=== PATIENT | male | born 1945 | race Caucasian/White ===

== ENCOUNTER 2022-05-03 10:00 | Outpatient (CLI) | payer OTHER | END 2022-05-03 10:50 | disposition home or self-care (01) | LOC: LAB 10:00 | PROVIDERS: ATTEND Urology | DX: R97.20 Elevated prostate specific antigen [PSA] (principal) ==

== ENCOUNTER 2022-05-20 07:58 | Outpatient (CLI) | payer OTHER | END 2022-05-20 08:17 | disposition home or self-care (01) | LOC: SONOGRAMA 07:58 | PROVIDERS: ATTEND Urology | DX: C61 Malignant neoplasm of prostate (principal); N40.0 Benign prostatic hyperplasia without lower urinary tract symptoms; N41.1 Chronic prostatitis ==

== ENCOUNTER 2022-05-23 21:20 | Emergency (ER) | payer OTHER ==
[~2022-05-23] VITALS: Ht 172.7 cm; Wt 59.4 kg
[2022-05-23] MEDS ORDERED: [UNRECOGNIZED DRUG - OTHER] (21:36)
== END 2022-05-24 07:00 | disposition home or self-care (01) ==
LOC: ER 21:20 → EDBD 21:23 → ER 21:23
DX: R33.8 Other retention of urine (principal); N40.1 Benign prostatic hyperplasia with lower urinary tract symptoms; R31.9 Hematuria, unspecified

== ENCOUNTER 2022-05-26 09:48 | Outpatient (CLI) | payer OTHER ==
[~2022-05-26 09:48] MED LIST: [UNRECOGNIZED DRUG - OTHER]
== END 2022-05-26 09:57 | disposition home or self-care (01) ==
LOC: LAB 09:48
PROVIDERS: ATTEND Urology
DX: D62 Acute posthemorrhagic anemia (principal)

== ENCOUNTER 2023-09-16 19:24 | Inpatient (IN) | payer OTHER ==
[~2023-09-16] VITALS: Ht 172.7 cm; Wt 64.4 kg
[2023-09-16 21:35] LABS: INR 1.07; PARTIAL THROMBOPLASTIN TIME 26.3 SECONDS (22.0-34.0); PROTHROMBIN TIME 11.2 SECONDS (9.0-11.5)
[2023-09-16 21:36] LABS: HEMATOCRIT 44.5 % (39.0-48.0); HEMOGLOBIN 15.1 g/dL (13-16.00); MEAN CELL VOLUME 96.6 fL (80.0-100.00); MEAN CORPUSCULAR HEMOGLOBIN 32.8 pg (27.00-32.0); PLATELET COUNT 240 K/uL (150-450); RED BLOOD COUNT 4.61 M/uL (4.00-6.00); RED CELL DISTRIBUTION WIDTH 13.8 % (11.5-14.5)
[2023-09-16 21:44] LABS: CALCIUM 9.1 mg/dL (8.5-10.1); CREATININE SERUM 1.03 mg/dL (0.70-1.30); GFR 69.84; POTASSIUM 3.91 mEq/L (3.5-5.1)
[2023-09-16] MEDS ORDERED: CIPROFLOXACIN IN 5 % DEXTROSE 200 ML IV SCH (21:51)
[2023-09-16 22:01] LABS: URINE BILIRRUBIN Negative (NEGATIVE); URINE BLOOD Large; URINE GLUCOSE Negative (NEGATIVE); URINE LEUKOCYTE Negative; URINE NITRATE Negative; URINE UROBILINOGEN 0.2 E.U./dl
[2023-09-16 22:05] LABS: URINE WBC 177.2 uL (0.0-23.2)
[2023-09-16 22:14] LABS: URINE PROTEIN 300 (NEGATIVE)
[2023-09-16 22:15] LABS: URINE APPEARANCE TURBID; URINE COLOR RED
[2023-09-17] MEDS ORDERED: PANTOPRAZOLE SODIUM 80 MG in 0.9 % SODIUM CHLORIDE 100 ML IV SCH (05:00)
[2023-09-17] MEDS ORDERED: OCTREOTIDE ACETATE 0.05MG/ML (50MCG/ML) AMPUL IV ONE (05:00)
[2023-09-17 06:11] LABS: HEMATOCRIT 44.9 % (39.0-48.0); HEMOGLOBIN 15.5 g/dL (13-16.00); MEAN CELL VOLUME 96.7 fL (80.0-100.00); MEAN CORPUSCULAR HEMOGLOBIN 33.4 pg (27.00-32.0); MEAN CORPUSCULAR HGB CONC 34.5 g/dl (32.0-36.0); PLATELET COUNT 232 K/uL (150-450); RED BLOOD COUNT 4.65 M/uL (4.00-6.00); RED CELL DISTRIBUTION WIDTH 13.6 % (11.5-14.5)
[2023-09-17] MEDS ORDERED: MORPHINE SULFATE 4 MG/ML VIAL IV STA (13:14)
[2023-09-17] MEDS ORDERED: GENTAMICIN SULFATE 40 MG/ML VIAL IV SCH (13:18)
[2023-09-17] MEDS ORDERED: FAMOTIDINE/PF 20 MG/2 ML VIAL IV SCH (17:35)
[2023-09-17] MEDS ORDERED: METRONIDAZOLE/SODIUM CHLORIDE 100 ML IV SCH (17:35)
[2023-09-17] MEDS ORDERED: MORPHINE SULFATE 2 MG/ML CARTRIDGE IV PRN (17:45)
[2023-09-17] MEDS ORDERED: TAMSULOSIN HCL 0.4 MG CAP PO SCH (17:45)
[2023-09-17 18:24] LABS: INR 1.14; PARTIAL THROMBOPLASTIN TIME 24.5 SECONDS (22.0-34.0); PROTHROMBIN TIME 11.9 SECONDS (9.0-11.5)
[2023-09-18 14:31] LABS: HEMATOCRIT 37.4 % (39.0-48.0); HEMOGLOBIN 12.4 g/dL (13-16.00); MEAN CELL VOLUME 97.8 fL (80.0-100.00); MEAN CORPUSCULAR HEMOGLOBIN 32.4 pg (27.00-32.0); MEAN CORPUSCULAR HGB CONC 33.1 g/dl (32.0-36.0); PLATELET COUNT 186 K/uL (150-450); RED BLOOD COUNT 3.82 M/uL (4.00-6.00); RED CELL DISTRIBUTION WIDTH 13.6 % (11.5-14.5)
== END 2023-09-19 13:36 | disposition home or self-care (01) | DRG 696 ==
LOC: ER 19:24 → MEDI 09-17 17:24
PROVIDERS: General Practice; ADMIT Internal Medicine; ATTEND Internal Medicine
PROC: BW21YZZ Computerized Tomography (CT Scan) of Abdomen and Pelvis using Other Contrast (ICD-10-PCS; principal; 2023-09-17)
DX: R31.0 Gross hematuria (principal); R33.8 Other retention of urine; C61 Malignant neoplasm of prostate; I10 Essential (primary) hypertension; N28.89 Other specified disorders of kidney and ureter

== ENCOUNTER 2024-07-16 10:12 | Outpatient (CLI) | payer OTHER | END 2024-07-16 10:15 | disposition home or self-care (01) | LOC: MRI 10:12 | PROVIDERS: ATTEND Psychiatry & Neurology Clinical Neurophysiology | DX: G31.84 Mild cognitive impairment of uncertain or unknown etiology (principal) | CPT/HCPCS: 70551 ==